=== PATIENT | female | born 1985 | race Hispanic/Latino ===

== ENCOUNTER → 2018-02-05 | Day surgery (SDC) | payer OTHER ==
[2018-02-01 12:34] LABS: BASOPHILS % 0.3 % (0.0-1.0); EOSINOPHILS # (AUTO) 1.1 (0.0-0.4); EOSINOPHILS % 9.5 % (0.0-6.0); HEMATOCRIT 38.5 % (34.2-44.1); HEMOGLOBIN 13.5 g/dL (12.0-16.0); LYMPHOCYTES # (AUTO) 2.2 (1.0-3.2); LYMPHOCYTES % 18.6 % (18.0-39.1); MEAN CORPUSCULAR HEMOGLOBIN 31.8 pg (28-32); MEAN CORPUSCULAR HGB CONC 35.1 g/dL (31-35); MEAN CORPUSCULAR VOLUME 90.6 fL (81-99); MONOCYTES # (AUTO) 0.6 (0.2-0.8); MONOCYTES % 5.5 % (4.4-11.3); NEUTROPHILS # (AUTO) 7.6 (2.1-6.9); NEUTROPHILS % 65.8 % (38.7-80.0); PLATELET COUNT 239 x10e3/uL (140-360); RED BLOOD COUNT 4.25 x10e6/uL (3.6-5.1); RED CELL DISTRIBUTION WIDTH 11.9 % (11.7-14.4)
[~2018-02-05] MED LIST: ACETAMINOPHEN 1000 MG/100 ML IV ONE; BUPIVACAINE 0.25%/EPI 30ML SDV INJ ONE; DEXAMETHASONE SOD PHOS INJ 4 MG/ML VIAL ONE; DICYCLOMINE HCL20 MG PO; FENTANYL CITRATE/PF 100MCG/2 ML INJ ONE; KETOROLAC TROMETHAMINE 30 MG/ML VIAL ONE; LIDOCAINE HCL 2% LOCAL INJ 5 ML SDV VIAL INJ ONE; MIDAZOLAM HCL 2 MG/2 ML VIAL ONE; MORPHINE SULFATE 2 MG/ML SYR ONE; NATAZIA 28 TAB1 EACH PO; ONDANSETRON HCL INJ 2 MG/ML VIAL ONE; PROPOFOL IV EMULSION 10 MG/ML 20 ML VIAL ONE; ROCURONIUM BROMIDE 10 MG/ML 5ML VIAL ONE; SEVOFLURANE INHAL SOLN 250 ML PEN BTL ONE
--- NOTE | 2018-02-05 11:42 | Operative Report ---
DATE OF PROCEDURE: February 05, 2018 PREOPERATIVE DIAGNOSES 1. Requesting sterilization. 2. Abdominal pain. 3. Abnormal uterine bleeding. POSTOPERATIVE DIAGNOSES 1. Requesting sterilization. 2. Abdominal pain. 3. Abnormal uterine bleeding. PROCEDURES 1. Laparoscopic bilateral tubal ligation. 2. Hysteroscopy. 3. Dilatation and curettage. 4. Ablation of endometriosis. COMPLICATIONS: None. ESTIMATED BLOOD LOSS: Minimal. DESCRIPTION OF PROCEDURE: The patient was taken to the OR, and general anesthesia was placed. She was prepped and draped in the normal sterile fashion. She was placed in the dorsal lithotomy position. A [employer] self-retaining uterine manipulator was passed through the cervix into the uterine cavity to manipulate the uterus. Gloves were changed. Two Allis clamps were applied to the umbilicus to mayito the umbilicus. An infraumbilical skin incision was made with a scalpel and the subcutaneous tissue dissected with a hemostat. A 5-mm bladeless trocar and cannula with the scope inside were passed through the abdominal wall into the abdominal cavity under direct visualization. The trocar was removed and the scope was threaded through this deep into the abdominal cavity. The abdomen was insufflated with carbon dioxide. The patient was placed in Trendelenburg position. The following were findings: Excessive adhesions between the omentum and anterior abdominal wall. Adhesions between the anterior wall of the uterus and the anterior pelvic wall. Tubes looked normal. Polycystic ovarian disease was noted. Two other ports were made in the right side of the abdomen. In one, an 8-mm bladeless trocar and cannula were passed through the abdominal wall into the abdominal cavity under direct visualization. In the other one, a 5 mm was placed into the abdominal cavity under direct visualization. Following this, a grasper was used to manipulate the pelvic wall. Endometriosis was noted on the left ovary as well as the left uterosacral ligament. Using bipolar and Kleppingers, the endometriosis was cauterized with power. Following this, Filshie clips were applied across the tubes to block the tubes. Drainage of the ovarian cyst was made using the Kleppingers and held with a grasper. Clear straw-colored fluid was drained from the ovarian cyst. Instruments were removed from the abdomen after it was deflated. The skin was approximated at the umbilicus using Dermabond. Marcaine with epinephrine was injected subcutaneously. Following this, a weighted speculum was placed inside the vagina. The cervix was grasped with Allis clamps. The cervix was dilated to Hegar 8. The cavity length measured about 9 cm. Hysteroscope was introduced inside the uterus and showed a normal cavity. The hysteroscope was removed. Sharp curettings were obtained and sent to pathology. The patient tolerated the procedures well. The lap, instrument and needle count was correct x2 at the end of the procedure. Job#: [id number]
== END | disposition home or self-care (01) ==
LOC: OR 07:05
PROVIDERS: ATTEND Obstetrics & Gynecology
DX: Z30.2 Encounter for sterilization (principal); N94.10 Unspecified dyspareunia; E28.2 Polycystic ovarian syndrome; N92.0 Excessive and frequent menstruation with regular cycle; N80.1 Endometriosis of ovary; N80.8 Other endometriosis; K66.0 Peritoneal adhesions (postprocedural) (postinfection); K58.9 Irritable bowel syndrome, unspecified; K44.9 Diaphragmatic hernia without obstruction or gangrene; Z01.812 Encounter for preprocedural laboratory examination; Z88.1 Allergy status to other antibiotic agents; Z88.0 Allergy status to penicillin
CPT/HCPCS: 36415; 58558; 58662; 58671; 58679; 81025; 84702; 85025; 88305; J1100; J1885; J2001; J2250; J2270; J2405; 88304